=== PATIENT | female | born 1990 | race Caucasian/White ===

== ENCOUNTER 2021-07-04 00:43 | Emergency (ER) | payer BC ==
[~2021-07-04 00:43] MED LIST: COLACE 100MG C100 MG PO; FERROUS SULFAT325 M2 PO; IBUPROFEN600 MG PO; NORCO 5-325 TA1 EACH PO; PRENATAL ONE T1 EACH PO; PRENATAL TABLE1 EAC1 PO; ZOFRAN ODT 4 MG4 MG SL
[2021-07-04 01:30] LABS: RED BLOOD COUNT 4.2 M/UL (4.00-5.10); WHITE BLOOD COUNT 10.8 K/UL (4.5-11.0)
[2021-07-04 01:53] LABS: BUN/CREATININE RATIO 11 (0-10)
[2021-07-04] MEDS ORDERED: PROTONIX40 MG PO (05:40)
[2021-07-04] MEDS ORDERED: MOBIC15 MG PO (05:40)
[2021-07-04] MEDS ORDERED: ONDANSETRON ODT4 MG SL (05:40)
[2021-07-10] MEDS ORDERED: ZOFRAN4 MG PO (10:30)
[2021-07-10] MEDS ORDERED: NORETHINDRONE AC5 MG PO (10:30)
[2021-07-10] MEDS ORDERED: CELEXA20 MG PO (10:31)
[2021-07-10] MEDS ORDERED: SPIRONOLACTONE50 MG PO (10:32)
[2021-07-15] MEDS ORDERED: HYDROCODON-ACE1 EAC2 PO (13:02)
[2021-07-15] MEDS ORDERED: COLACE100 MG PO (13:02)
== END 2021-07-04 05:55 | disposition home or self-care (01) ==
LOC: ER1 00:43
PROVIDERS: Physician Assistant
DX: K80.20 Calculus of gallbladder without cholecystitis without obstruction (principal); R10.9 Unspecified abdominal pain; Z88.2 Allergy status to sulfonamides; R10.816 Epigastric abdominal tenderness; F41.9 Anxiety disorder, unspecified
CPT/HCPCS: 80053; 81001; 83690; 84703; 85025; 96374; 96375; 99284; C9113; J1885; J2270; J2405; Q9967

== ENCOUNTER → 2021-07-15 | Day surgery (SDC) | payer BC ==
[~2021-07-15] MED LIST changes: +CELEXA20 MG PO; +COLACE100 MG PO; +HYDROCODON-ACE1 EAC2 PO; +MOBIC15 MG PO; +NORETHINDRONE AC5 MG PO; +ONDANSETRON ODT4 MG SL; +PROTONIX40 MG PO; +SPIRONOLACTONE50 MG PO; +ZOFRAN4 MG PO
== END | disposition home or self-care (01) ==
LOC: OR 08:45
DX: K80.10 Calculus of gallbladder with chronic cholecystitis without obstruction (principal); Z87.891 Personal history of nicotine dependence; Z88.1 Allergy status to other antibiotic agents; Z88.2 Allergy status to sulfonamides; Z20.822 Contact with and (suspected) exposure to COVID-19
CPT/HCPCS: 84703; J1100; J1170; J1885; J2001; J2250; J2370; J2405; J2704; J2710; J3010; J7030; J7120